=== PATIENT | female | born 1955 | race Caucasian/White ===

== ENCOUNTER 2016-08-12 18:18 | Emergency (ER) | payer OTHER ==
[~2016-08-12] VITALS: Ht 165.1 cm; Wt 74.5 kg
[~2016-08-12 18:18] MED LIST: ADVAIR 250/501 DISK IH; ALPRAZOLAM0.25 M2 PO; ASPIR 8181 M1 PO; ASPIRIN325 M1 PO; ASPIRIN81 M2 PO; B-COMPLEX W/VI1 EAC1 PO; Betapace,Sorine PO; CARVEDILOL6.25 MG PO; CO Q-10100 MG PO; COLACE100 MG PO; COREG12.5 MG PO; COREG6.25 M1 PO; COZAAR50 MG PO; Coreg PO; DOXYCYCLINE HY100 M3 PO; DULERA 100 MCG/13 GM IH; FERROUS SULFAT325 MG PO; FUROSEMIDE40 MG PO; GLUCOPHAGE1000 MG PO; IMDUR30 MG PO; IRON18 MG PO; ISOSORBIDE MONO30 MG PO; K-Dur PO; KLOR-CON 1010 ME1 PO; LANSOPRAZOLE30 MG PO; LASIX40 MG PO; LEVAQUIN750 MG PO; LO-DOSE ASPIRIN81 M1 PO; LOPRESSOR12.5 MG PO; LOSARTAN POTASS25 MG PO; LOSARTAN POTASS50 MG PO; Lasix PO; METFORMIN HCL500 M1 PO; METFORMIN HCL750 MG PO; NITROSTAT0.4 MG SL; PERCOCET 5/31 TABLET PO; PLAVIX75 MG PO; PRAVACHOL40 MG PO; PRAVACHOL80 MG PO; PRAVASTATIN SOD40 MG PO; PRAVASTATIN SOD80 MG PO; PREDNISONE10 MG PO; PROAIR HFA8.5 GM IH; SERTRALINE HCL100 MG PO; SORINE80 MG PO; SOTALOL AF80 MG PO; SOTALOL80 MG PO; SPIRIVA1 INHALATI IH; SPIRONOLACTONE25 MG PO; TRAMADOL HCL50 MG PO; VENTOLIN HFA18 GM IH; VITAMIN D-32000 UNIT PO; VITAMIN D2000 INTUN PO; VITAMIN D31000 UNI2 PO; XANAX0.5 MG PO; XARELTO10 MG PO; XARELTO20 MG PO; ZANTAC150 MG PO; ZOLOFT100 MG PO; [UNRECOGNIZED DRUG - CODE] IH
[2016-08-12 19:09] LABS: HEMATOCRIT 11.9 % (36.0-46.0); INTER. NORMALIZED RATIO 1.8; MCH 28.3 PG (29.0-34.0); MCHC 30.3 G/DL (30.0-36.0); MCV 93.7 FL (83-99); MEAN PLAT.VOLUME 9.6 uM^3 (9.5-12.4); PLATELET COUNT 299 K/uL (156-360); PROTHROMBIN TIME 18.7 (9.2-11.2); RBC DIS.WIDTH-CV 18.3 % (11.8-14.6); RBC DIS.WIDTH-SD 55.5 % (39-53); RED BLOOD COUNT 1.27 M/uL (3.80-5.20); WHITE BLOOD COUNT 17.3 K/uL (4.1-10.2)
[2016-08-12 19:13] LABS: CHLORIDE 99 mEq/L (99-109); POTASSIUM 4.6 mEq/L (3.7-5.4); SODIUM 133 mEq/L (136-147)
[2016-08-12 19:15] LABS: GLUCOSE 159 mg/dL (70-99)
[2016-08-12 19:16] LABS: ANION GAP 17 MEQ/L (2-14)
[2016-08-12 19:19] LABS: GFR ESTIMATE (CALCULATED) > 59 mL/min/; UREA NITROGEN (BUN) 36 mg/dL (9-23)
[2016-08-12 19:57] VITALS: BP 81/60
[2016-08-12 20:14] VITALS: BP 91/46
[2016-08-12 21:25] VITALS: BP 94/60
== END 2016-08-12 21:26 | disposition short-term general hospital (02) ==
LOC: EME 18:18
PROVIDERS: Emergency Medicine
PROC: 30233N1 Transfusion of Nonautologous Red Blood Cells into Peripheral Vein, Percutaneous Approach (ICD-10-PCS; principal; 2016-08-12)
DX: K92.2 Gastrointestinal hemorrhage, unspecified (principal); Z95.811 Presence of heart assist device; R00.0 Tachycardia, unspecified; I50.9 Heart failure, unspecified; I10 Essential (primary) hypertension; E78.5 Hyperlipidemia, unspecified; E11.9 Type 2 diabetes mellitus without complications; J44.9 Chronic obstructive pulmonary disease, unspecified; Z79.01 Long term (current) use of anticoagulants; Z79.82 Long term (current) use of aspirin; Z95.0 Presence of cardiac pacemaker; Z95.5 Presence of coronary angioplasty implant and graft; Z87.891 Personal history of nicotine dependence
CPT/HCPCS: 80048; 85027; 85610; 86850; 86900; 86901; 86920; 93005; 99281; 99285; J2405; J7030; P9016

== ENCOUNTER 2016-10-21 19:15 | Emergency (ER) | payer OTHER ==
[~2016-10-21] VITALS: Ht 162.6 cm; Wt 71.4 kg
[2016-10-21 20:10] LABS: CHLORIDE 89 mEq/L (99-109); SODIUM 133 mEq/L (136-147)
[2016-10-21 20:13] LABS: GLUCOSE 124 mg/dL (70-99)
[2016-10-21 20:14] LABS: ANION GAP 17 MEQ/L (2-14)
[2016-10-21 20:15] LABS: TOTAL BILIRUBIN 0.4 mg/dL (0.0-1.0)
[2016-10-21 20:16] LABS: ALKALINE PHOSPHATASE 204 IU/L (3-129); GFR ESTIMATE (CALCULATED) > 59 mL/min/; PTT 80.8 (25-32)
[2016-10-21 20:18] LABS: HEMATOCRIT 19.6 % (36.0-46.0); MCH 24.1 PG (29.0-34.0); MCHC 31.1 G/DL (30.0-36.0); MCV 77.5 FL (83-99); MEAN PLAT.VOLUME 11.5 uM^3 (9.5-12.4); NRBC (%) 0.4 /100 WBC (0-0); RBC DIS.WIDTH-CV 17.2 % (11.8-14.6); RBC DIS.WIDTH-SD 48.4 % (39-53); WHITE BLOOD COUNT 6.7 K/uL (4.1-10.2)
[2016-10-21 20:22] LABS: PLATELET COUNT 109 K/uL (156-360); RED BLOOD COUNT 2.53 M/uL (3.80-5.20)
[2016-10-21 20:23] LABS: PROTHROMBIN TIME 109.1 (9.2-11.2)
[2016-10-21 20:28] LABS: POTASSIUM 2.9 mEq/L (3.7-5.4); UREA NITROGEN (BUN) 38 mg/dL (9-23)
[2016-10-21 22:09] VITALS: BP 71/45
[2016-10-21 22:25] VITALS: BP 73/56
[2016-10-21 23:18] VITALS: BP 59/41
[2016-10-22 00:44] VITALS: BP 65/55
[2016-10-22 01:01] VITALS: BP 68/52
[2016-10-22 02:13] VITALS: BP 92/54
[2016-10-22 02:40] VITALS: BP 92/54
== END 2016-10-22 02:41 | disposition short-term general hospital (02) ==
LOC: EME → EDBD 19:15 → EME 19:15
PROVIDERS: Emergency Medicine
PROC: 30233N1 Transfusion of Nonautologous Red Blood Cells into Peripheral Vein, Percutaneous Approach (ICD-10-PCS; principal; 2016-10-21)
DX: R04.0 Epistaxis (principal); D64.9 Anemia, unspecified; E87.6 Hypokalemia; D68.32 Hemorrhagic disorder due to extrinsic circulating anticoagulants; Z79.01 Long term (current) use of anticoagulants; E11.9 Type 2 diabetes mellitus without complications; E78.5 Hyperlipidemia, unspecified; I10 Essential (primary) hypertension; K21.9 Gastro-esophageal reflux disease without esophagitis; I25.2 Old myocardial infarction; I25.10 Atherosclerotic heart disease of native coronary artery without angina pectoris; Z98.61 Coronary angioplasty status; Z96.641 Presence of right artificial hip joint; Z95.0 Presence of cardiac pacemaker; Z79.82 Long term (current) use of aspirin; Z79.84 Long term (current) use of oral hypoglycemic drugs; Z87.891 Personal history of nicotine dependence
CPT/HCPCS: 80053; 85027; 85610; 85730; 86850; 86900; 86901; 86920; 99281; 99285; P9016; P9017